=== PATIENT | female | born 1955 | race Caucasian/White ===

== ENCOUNTER → 2017-07-01 | Outpatient (CLI) | payer BC ==
[2017-07-01 15:56] LABS: BLOOD UREA NITROGEN 19 mg/dl (7-18); CREATININE 0.96 mg/dl (0.60-1.20)
== END | disposition home or self-care (01) ==
LOC: C.LAB 14:57
PROVIDERS: ATTEND Psychiatry & Neurology Neurology
DX: G37.9 Demyelinating disease of central nervous system, unspecified (principal)

== ENCOUNTER → 2017-07-02 | Outpatient (CLI) | payer BC ==
[~2017-07-02] MED LIST: GADAVIST IV PRN
--- NOTE | 2017-07-02 17:52 | DIAGNOSTIC IMAGING REPORT ---
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 COMPARISON: Brain MR 07/16/2016, MRI cervical spine 07/16/2016 TECHNIQUE: Multiplanar multisequence MRI the brain was obtained both with and without the use of 6.3 mL Gadavist. FINDINGS: No restricted diffusion to suggest acute ischemia. The midline structures including the corpus callosum, brainstem, optic chiasm, infundibulum, and pituitary gland are unremarkable. 6 x 7 x 4 mm pineal gland cyst is incidentally noted. 8 mm tonsillar ectopia redemonstrated. No syrinx is seen. There is redemonstration of multiple foci of T2/FLAIR prolongation within the cerebral hemispheres bilaterally which again are predominantly seen within a periventricular distribution, most pronounced in the parietal lobes. Some of these foci are seen perpendicular to the corpus callosum. No infratentorial or definite new lesions identified. No definite enhancement identified to suggest active demyelination. No acute intracranial hemorrhage, midline shift, hydrocephalus or abnormal extra-axial collections. The major flow voids at the level of the skull base appear patent. Orbits are symmetric. Mastoid air cells are clear. Mild ethmoid mucosal disease present. IMPRESSION: 1. No acute intracranial abnormality. 2. Stable findings of multifocal areas of T2/FLAIR prolongation within the periventricular white matter of the cerebral hemispheres bilaterally, most compatible with multiple sclerosis. No new lesions or infratentorial lesions. No abnormal enhancement identified to suggest active demyelination. The above report was generated using voice recognition software. It may contain grammatical, syntax or spelling errors. Electronically signed by: Akira Kirk M.D. 07/02/2017 5:51 PM Dictated Date/Time: 07/02/2017 5:42 PM
== END | disposition home or self-care (01) ==
LOC: C.MRI 16:16
PROVIDERS: ATTEND Psychiatry & Neurology Neurology
DX: G37.3 Acute transverse myelitis in demyelinating disease of central nervous system (principal)